=== PATIENT | female | born 1965 | race Caucasian/White ===

== ENCOUNTER 2025-02-05 08:41 | Emergency (ER) | payer MEDICARE, MEDICAID, SELFPAY ==
[2025-02-05 08:42] VITALS: BMI 29.5
[2025-02-05 08:49] VITALS: BP 117/84; PULSE 73; RESP 18; TEMP 36.6; O2SAT 96
--- NOTE | 2025-02-05 09:28 | PD.EDFMALE ---
ED Female Urogenital RME/HPI General Chief complaint: Urogenital-Female Stated complaint: I THINK I HAVE AN UTI LOWER BACK PAIN Time Seen by Provider: 02/05/25 08:46 Arrival date/time: 02/05/25 08:41 This is a 59-year-old female that comes into the emergency room with complaints of urinary frequency, urgency, dysuria that is been going on for approximately 3 days. Patient denies any any other symptoms other than some diarrhea. Patient denies fever, nausea, vomiting. Patient denies any other medical issues. Related Data Previous Rx's ?Medication ?Instructions ?Recorded ibuprofen 800 mg tablet 800 mg PO Q6H PRN pain #14 tabs 02/05/25 nitrofurantoin 100 mg PO BID #14 caps 02/05/25 monohydrate/macrocrystals 100 mg capsule (Macrobid) Allergies Allergy/AdvReac Type Severity Reaction Status Date / Time No Known Allergies Allergy Verified 02/05/25 08:44 Review of Systems Review of Systems Systems Reviewed: All systems reviewed, normal except as documented Past Medical History Past Medical History Comments PMH COMMENT: Denies ED Exam Narrative Physical exam: VITAL SIGNS: Reviewed. GENERAL APPEARANCE: Alert and interactive, follows commands, no acute distress HEAD AND FACE: Non-traumatic. ENT: PERRL, conjuctiva pink and clear, eyelid no trauma, Mucous membrane moist. NECK: Supple, nontender, no nuchal rigidity. CHEST: No tenderness, no crepitus, no paradoxical movement, no retractions. LUNGS: breathing even and unlabored HEART: Regular rate, cap refill less than 2 seconds ABDOMEN: Soft, nondistended, no guarding, nontender NEUROLOGICAL: Gross motor function intact sensory function intact, Appropriate for age. MUSCULOSKELETAL: low back nontender, full range of motion EXTREMITIES: No redness no swelling no skin breakdown on bilateral foot and leg. Distal neurovascular status intact bilateral foot SKIN: Color pink, dry Course Quality Measures none Orders Category Date Time Status HCG Qualitative,Urine Stat Lab 02/05/25 09:16 Completed Urinalysis, C/S if Indicated Stat Lab 02/05/25 09:16 Completed Urine Culture Stat Lab 02/05/25 09:16 Completed Ibuprofen Tab [Motrin Tab] Med 02/05/25 11:37 Discontinued 800 mg PO X1 ONE cefTRIAXone [Rocephin] 1,000 mg Med 02/05/25 11:38 Discontinued Lidocaine 1% Pf Vial 5ml [Xylocaine 1% Pf 5 ml] 2.1 ml IM X1 Vital Signs Vital signs: Vital Signs Temperature 97.8 F 02/05/25 08:49 Pulse Rate 73 02/05/25 08:49 Respiratory Rate 18 02/05/25 08:49 Blood Pressure 117/84 02/05/25 08:49 Pulse Oximetry (%) 96 02/05/25 08:49 Oxygen Delivery Method Room Air 02/05/25 08:49 Urogenital - Female MDM Narrative MDM Narrative:: UA ordered will follow-up with results Patient positive for UTI. Will give patient a dose of Rocephin here and sent home patient with Macrobid. I did talk to patient at length about following up with urine culture. Patient verbalized understanding. Patient is to follow-up with primary provider in 1 to 2 days. [place] to emergency room symptoms change or worsen. Patient data External records reviewed:: [facility] previous records Clinical information provided by:: patient Social determinants that could affect healthcare access:: none Patient has the following chronic illnesses:: noen How is presenting disease/condition affected by chronic disease/condition?: no chronic disease Evaluation data The following diagnostics were reviewed and interpreted by me:: lab results Lab and/or radiology exams considered but not ordered:: none Interpretation Summary: see note Medications / Prescriptions Medications or Prescriptions considered but not ordered:: none Medication administrations:: Medication Administration History Discontinued Medications Ceftriaxone Sodium 1,000 mg/ (Lidocaine HCl 2.1 ml) 0 mg IM X1 ONE Stop: 02/05/25 11:39 Last Admin: 02/05/25 11:47 Dose: 1,000 mg Documented By: Ibuprofen (Ibuprofen Tab 400 Mg Tablet) 800 mg PO X1 ONE Stop: 02/05/25 11:38 Last Admin: 02/05/25 11:46 Dose: 800 mg Documented By: see [facility] Consultations Consultation(s) initiated? (list below): No Diagnosis Urogenital Female Differential Diagnosis: urinary tract infection, cystitis and other (kidney stone ) Most likely diagnosis given after review of the tests above:: see note Admission Indicated Admission indicated?: not indicated Admission Request Was there a request for admission?: No Disposition Plan Disposition Plan: Discharge Discharge Attestation Discharge Attestation: The patient and all family members were given an opportunity to ask questions and understood the discharge instructions. Discharge instructions specifically effects, indications for sooner follow up or return to the emergency department, and the expected course of current diagnosis. Patient condition: Stable Discharge Plan Plan Patient Disposition: HOME (Self Care) Patient condition on transfer: Stable Prescriptions/Referrals Prescriptions/Med Rec: New ibuprofen 800 mg tablet 800 mg PO Q6H PRN (Reason: pain) Qty: 14 0RF nitrofurantoin monohyd/m-cryst [Macrobid] 100 mg capsule 100 mg PO BID Qty: 14 0RF Rx Instructions: must administer with a meal/food Referrals: No Primary/Family,Physician [Primary Care Provider] - In 1 week Problem List Clinical Impression: UTI (urinary tract infection) Patient/Caregiver Discharge Instructions Discharge Activity: activity as tolerated Education Materials: ED CYSTITIS Female Adult Additional Instructions: Follow up with primary provider in 1-2 days. Come back to ED if symptoms change or worsen follow-up with urine culture with primary provider.. Print Language: Somali Stand Alone Forms: Kelly Award Info., Patient Portal Info Letter DARIA/JESSICA Supervising Physician DARIA/JESSICA Supervising Physician: nataly
[2025-02-05 09:59] LABS: Collection Type, Urine Voided
[2025-02-05 10:11] LABS: HCG Qualitative,Urine Negative
[2025-02-05 10:21] LABS: Bacteria,Urine Rare; Bilirubin,Urine Negative (Negative); Blood,Urine 3+ (Negative); Clarity,Urine Turbid (Clear/Hazy); Color,Urine Lt-Yellow (Lt Yel-Yel); Glucose, Urine Negative (Negative); Ketones,Urine Negative (Negative); Leukocyte Esterase,Urine Positive (Negative); Nitrite,Urine Negative (Negative); PH,Urine 6.0 (5.0-7.0); Protein,Urine Trace (Neg - Trace); RBC,Urine 37 /hpf (0-3); Specific Gravity,Urine 1.014 (1.001-1.035); Squamous Epithelial Cell,Urine 1 /hpf (0-5); Urobilinogen,Urine Negative mg/dL (0.0-1.0); WBC,Urine 227 /hpf (0-5)
[2025-02-05 10:22] LABS: Culture Indicated,Urine Yes
[2025-02-05] MEDS: IBUPROFEN TAB 400 MG TABLET 800 MG PO (11:46)
== END 2025-02-05 11:58 | disposition home or self-care (01) ==
PROVIDERS: Nurse Practitioner Family; Emergency Provider Emergency Medicine
DX: N39.0 Urinary tract infection, site not specified (principal)
CPT/HCPCS: 81001; 81025; 87086; 96372; 99283; J0696; J3490; A9270